=== PATIENT | female | born 1970 | race Caucasian/White ===

== ENCOUNTER 2019-06-27 12:23 | Emergency (ER) | payer OTHER ==
[~2019-06-27] VITALS: Ht 157.5 cm; Wt 63.0 kg
[2019-06-27] MEDS ORDERED: SIMV-260 PO (12:26)
[2019-06-27 15:11] VITALS: BP 132/68
== END 2019-06-27 15:12 | disposition home or self-care (01) ==
LOC: EMS 12:24
DX: R13.10 Dysphagia, unspecified (principal)
CPT/HCPCS: 70360

== ENCOUNTER 2023-09-02 02:51 | Emergency (ER) | payer OTHER ==
[~2023-09-02] VITALS: Ht 157.5 cm; Wt 61.4 kg
[~2023-09-02 02:51] MED LIST: ACET-2247 PO; HYDR-4723 PO; MECL-302 PO; SIMV-260 PO
[2023-09-02 04:19] LABS: APPEARANCE,URINE CLEAR (CLEAR); BILIRUBIN,URINE NEGATIVE (NEGATIVE); COLOR,URINE LIGHT YELLOW (YELLOW); GLUCOSE, URINE (UA) NEGATIVE (NEGATIVE); KETONES,URINE NEGATIVE (NEGATIVE); LEUKOCYTE ESTERASE ,URINE NEGATIVE (NEGATIVE); NITRATE,URINE NEGATIVE (NEGATIVE); OCCULT BLOOD,URINE NEGATIVE (NEGATIVE); PROTEIN,URINE NEGATIVE (NEGATIVE); SPECIFIC GRAVITIY, URINE 1.011 (1.003-1.030); UROBILINOGEN,URINE <=1.0 mg/dL (<=1.0)
[2023-09-02 04:20] VITALS: BP 132/88; PULSE 74; RESP 16; TEMP 97.3
[2023-09-02] MEDS ORDERED: METH-812 PO (04:26)
[2023-09-02] MEDS ORDERED: IBUP-1492 PO (04:26)
[2023-09-02] MEDS ORDERED: KETOROLAC TROMETHAMINE 30 MG/ML VIAL IM ONE (04:30)
[2023-09-02] MEDS ORDERED: KETOROLAC TROMETHAMINE 60 MG/2 ML VIAL IM ONE (04:45)
== END 2023-09-02 05:46 | disposition home or self-care (01) ==
LOC: EMS 02:52
DX: M54.50 Low back pain, unspecified (principal); R10.9 Unspecified abdominal pain; E78.00 Pure hypercholesterolemia, unspecified; Z98.890 Other specified postprocedural states
CPT/HCPCS: 99283; 81003; 96372; J1885

== ENCOUNTER 2023-09-03 02:16 | Emergency (ER) | payer OTHER ==
[~2023-09-03] VITALS: Ht 157.5 cm; Wt 61.4 kg
[~2023-09-03 02:16] MED LIST changes: +IBUP-1492 PO; +METH-812 PO
[2023-09-03] MEDS ORDERED: HYDROmorphone HCL 2 MG/ML SYRINGE IM ONE (03:00)
[2023-09-03] MEDS ORDERED: ONDANSETRON HCL 4 MG/2 ML VIAL IM ONE (03:00)
[2023-09-03] MEDS ORDERED: HYDROCODONE/ACETAMINOPHEN 5-325 MG TABLET PO ONE (03:00)
[2023-09-03 03:59] VITALS: BP 135/88; PULSE 71; RESP 16; TEMP 97.3
== END 2023-09-03 04:19 | disposition home or self-care (01) ==
LOC: EMS 02:17
DX: S39.012A Strain of muscle, fascia and tendon of lower back, initial encounter (principal); E78.00 Pure hypercholesterolemia, unspecified; Z98.890 Other specified postprocedural states; X58.XXXA Exposure to other specified factors, initial encounter; Y93.89 Activity, other specified; Y92.89 Other specified places as the place of occurrence of the external cause; Y99.8 Other external cause status
CPT/HCPCS: 72110; 99283

== ENCOUNTER 2025-07-27 03:41 | Emergency (ER) | payer OTHER ==
[~2025-07-27] VITALS: Ht 157.5 cm; Wt 55.9 kg
[~2025-07-27 03:41] MED LIST changes: +HYDR-4062 PO; -HYDR-4723 PO
[2025-07-27 03:44] VITALS: TEMP 97.7
[2025-07-27 04:31] LABS: PLATELET COUNT (AUTO) 417 K/uL (150-450); RED BLOOD CELL COUNT(AUTO) 4.41 MIL/uL (4.00-5.20); RED CELL DISTRIBUTION WIDTH 13.8 % (11.5-14.5); WHITE BLOOD COUNT (AUTO) 8.6 K/uL (4.5-11.0)
[2025-07-27 04:40] LABS: CALCIUM, TOTAL 9.2 mg/dL (8.8-10.5); CREATININE 0.52 mg/dL (0.60-1.30); GLOMERULAR FILTR. RATE CALC > 60 mL/min (>60); GLUCOSE,RANDOM 116 mg/dL (70-110); SODIUM SERUM 145 mmol/L (136-145); UREA NITROGEN, BLOOD 11 mg/dL (7-18)
[2025-07-27 04:59] LABS: TROPONIN I-HIGH SENSITIVITY 73 ng/L (<51)
[2025-07-27] MEDS: PB/HYOSCY/ATR/SCOP/LIDO/MAALOX 55 ML BOTTLE PO ONE (05:20)
[2025-07-27 05:34] LABS: ASPARTATE AMINOTRANSFERASE 17.0 U/L (15-37); TOTAL PROTEIN, SERUM 7.3 g/dL (6.4-8.2)
[2025-07-27 07:28] LABS: TROPONIN I-HIGH SENSITIVITY 60 ng/L (<51)
[2025-07-27] MEDS: FAMOTIDINE 20 MG TABLET PO ONE (07:33)
[2025-07-27 07:34] VITALS: BP 160/102; PULSE 63; RESP 18; O2SAT 100
[2025-07-27] MEDS ORDERED: PERCT PO (08:50)
[2025-07-27] MEDS ORDERED: ONDA-104 PO (08:50)
[2025-07-27] MEDS ORDERED: FAMO20 PO (08:50)
== END 2025-07-27 09:20 | disposition home or self-care (01) ==
LOC: EMS 03:44
DX: K44.9 Diaphragmatic hernia without obstruction or gangrene (principal); R10.13 Epigastric pain; F41.9 Anxiety disorder, unspecified; F32.A Depression, unspecified; E78.00 Pure hypercholesterolemia, unspecified; Z79.899 Other long term (current) drug therapy
CPT/HCPCS: 71045; 74176; 76705; 80048; 80076; 83690; 84484; 85025; 93005; 99285; 36415-L1; 36415-TC